=== PATIENT | male | born 2000 | race Caucasian/White ===

== ENCOUNTER 2021-11-09 19:07 | Emergency (ER) | payer MEDICAID, SELFPAY ==
[2021-11-09] VITALS (37 sets, daily range): BP systolic 111–165; BP diastolic 65–85; PULSE 75–120; RESP 12–23; TEMP 36.7–37; O2SAT 90–100
--- NOTE | 2021-11-09 19:22 | ED.GENADUL_ITS ---
Discharge Plan Disposition Patient Disposition: HOME Condition: Improving Discharge Details Clinical Impression: Allergic reaction to tree nut Primary Care Provider: Sofy Curran ED Provider: Walter Doyle Home Meds and New Rx's Prescriptions: New prednisone 50 mg tablet 50 mg PO DAILY Qty: 5 0RF Continued acetaminophen 500 mg Tablet 500 - 1,000 mg PO Q6H PRN0RF loratadine-pseudoephedrine [Claritin-D 24 Hour] 10-240 mg Tablet Extended Release 24 Hr 1 tab PO DAILY PRN0RF ibuprofen 200 mg Tablet 200 mg PO Q6H PRN0RF Glucagon Emergency Kit (human) 1 mg recon soln 1 mg IM PRN PRN0RF Flovent HFA 110 mcg/actuation HFA aerosol inhaler 2 puff INHALATION BID 0RF Label Comments: Inhale 2 puff using inhaler twice a day insulin lispro [Humalog KwikPen Insulin] 100 unit/mL insulin pen 50 unit SUBCUT TID 0RF Label Comments: INJECT 50 UNITS SUBCUTANEOUSLY DAILY IN THREE TO FOUR DIVIDED DOSES. MAX OF 50 UNITS/DAY epinephrine 0.3 mg/0.3 mL auto-injector 0.3 mg IM PRN PRN (Reason: anaphylaxis) Qty: 1 1RF Discharge Instructions Instructions: General Allergic Reaction (ED) Additional Instructions: Please closely monitor your symptoms and return immediately if you have any significant worsening of symptoms, difficulty breathing, swelling to your lips tongue throat or concerns for rebound reaction as discussed. You may continue to take [id number] Benadryl as needed for itching and stay well-hydrated. Please take the prednisone as prescribed and closely monitor your blood sugar and adjust your insulin dosing as needed. Referrals: Sofy Curran [Primary Care Provider] - (As needed for reassessment) Discharge Data Discharge Date/Time-TO BE ENTERED AT DEPARTURE: 11/09/21 21:56 Medical Decision Making Patient presenting to the emergency department for chief complaint of allergic reaction. He states approximately 1 hour prior to arrival he had eaten some almonds. Within 20 minutes he started having swelling of his face along with a rash all over his body. Patient denies any difficulty breathing, swelling to tongue or back of throat wheezing or other symptoms. He does state that he had a previous allergic reaction approximately 6 or 7 months ago that happened in his sleep with suspicion of a food source but unknown cause. He had been given an EpiPen at that point and today was the first reaction since. He did give himself the EpiPen prior to arrival. Physical exam shows swelling to the periorbital and lips but oral examination is unremarkable, normal lung sounds, no wheezing, slightly tachycardic otherwise stable patient with diffuse urticaria and rash. Given that patient is otherwise stable and has already received epinephrine plan to give patient fluids, steroids, H1 and H2 medication. Patient reassessed after over 2 hours of observation and patient now has no further swelling to face including lips, no wheezing, not tachycardic, urticaria still present on upper extremities but otherwise has improved. I do feel that patient is stable to go home with replacement for his EpiPen and prescription for additional EpiPen and refill as needed. Patient will be placed upon daily steroids for the next 5 days and close monitoring of symptoms along with return and follow-up precautions were discussed along with biphasic reaction. HPI General Mode of arrival: ambulatory . Date/Time Provider Initiated Documentation: 11/09/21 19:09 . Limitations to Documentation: no limitations . Information obtained by: patient and RN notes reviewed . History of Present Illness 21 year old M presents to the emergency department with the chief complaint of Allergic/ anaphylactic reaction, Quality is described as other (denies pain), Patient started experiencing this hour(s) (1) and it has been constant. improves with No relieving factors improve symptom(s), Other factors that worsen symptoms (Eating almonds) . Patient notes no other symptoms.. Patient did receive the following treatments prior to arrival, other (Took EpiPen 30 minutes prior to arrival) Related Data Home Medications Medication Instructions Recorded Confirmed acetaminophen 500 mg tablet 500 - 1,000 mg PO Q6H PRN 11/09/21 11/09/21 epinephrine 0.3 mg/0.3 mL 0.3 mg (0.3 mL) IM PRN PRN #1 ea 11/09/21 injection, auto-injector fluticasone propionate 110 2 puff INHALATION BID 11/09/21 11/09/21 mcg/actuation HFA aerosol inhaler (Flovent HFA) glucagon 1 mg solution for 1 mg IM PRN PRN 11/09/21 11/09/21 injection (Glucagon Emergency Kit) ibuprofen 200 mg tablet 200 mg PO Q6H PRN 11/09/21 11/09/21 insulin lispro 100 unit/mL 50 unit SUBCUT TID 11/09/21 11/09/21 subcutaneous pen (Humalog KwikPen (U-100) Insulin) loratadine-pseudoephedrine ER 10 1 tab PO DAILY PRN 11/09/21 11/09/21 mg-240 mg tablet,extended [id number] (Claritin-D 24 Hour) prednisone 50 mg tablet 50 mg PO DAILY #5 tab 11/09/21 Previous Rx's Medication Instructions Recorded epinephrine 0.3 mg/0.3 mL 0.3 mg (0.3 mL) IM PRN PRN #1 ea 11/09/21 injection, auto-injector prednisone 50 mg tablet 50 mg PO DAILY #5 tab 11/09/21 Allergies Allergy/AdvReac Type Severity Reaction Status Date / Time red dye Allergy Mild Skin Rash Unverified 11/09/21 19:23 Penicillins Allergy Unknown Other (See Unverified 11/09/21 19:23 Comment) General Stated Complaint: Allergic VICENTE: 2 Review of Systems Constitutional Constitutional: Denies chills, Denies fever(s) and Denies headache(s) Eyes Eyes: Reports itchy eyes ENT Ears, Nose, Mouth, and Throat: Denies facial pain, Denies headache(s), Reports lip swelling, Reports nasal congestion, Reports nasal discharge, Denies neck pain, Denies throat swelling and Denies tongue swelling Cardiovascular Cardiovascular: Denies chest pain, Denies syncope and Denies dyspnea Respiratory Respiratory: Denies chest congestion, Denies cough, Denies dyspnea and Denies wheezing Gastrointestinal Gastrointestinal: Denies abdominal pain, Denies nausea and Denies vomiting Musculoskeletal Musculoskeletal: Denies back pain and Denies neck pain Integumentary/Breasts Skin/Breast: Reports rash and Reports skin swelling Neurologic Neurologic: Denies syncope and Denies headache(s) Allergic/Immunologic Allergic/Immunologic: Reports as per HPI, Reports urticaria, Reports itchy eyes, Reports lip swelling, Denies throat swelling, Denies tongue swelling and Denies wheezing PFSH All Active Problems (Updated 11/09/21 @ 21:29 by Walter Doyle NP) Allergic reaction to tree nut (Acute) Social History Smoking/Tobacco Use Status: Never Smoking risk assessment performed?: Yes Alcohol Intake: current Alcohol Intake frequency: holidays/special occasions only Drug use: Occasionally Substance use type: marijuana Details: Marijuana weekly. Do you feel safe at home: Yes Do you feel safe in your relationship?: Yes Exam HENMT Ears: hearing grossly normal bilaterally, external ears normal and TM's normal bilaterally General nose exam: external nose normal and nares normal Face and sinus: edema bilaterally periorbital, upper lip and lower lip and no tenderness Mouth: oral mucosae normal, lip normal and tongue normal Throat: posterior oropharynx normal and uvula midline Eyes Alignment and Position: alignment normal Eyelids: eyelids normal Conjunctivae: conjunctivae normal Neck Neck: normal visual inspection, trachea midline and supple Resp Effort & Inspection: normal respiratory effort, able to speak in complete sentences and no audible wheezes Auscultation: clear to auscultation bilaterally Cardio Rate: tachycardic Rhythm: regular rhythm Heart Sounds: S1 normal and S2 normal Skin Rashes: rashes noted (bilateral arms) urticaria Trauma: no lacerations or abrasions Neuro General: patient alert, patient awake, patient oriented x3, gait normal, tone normal, moves all extremities, no focal motor deficits and not confused Course Vital Signs Vital signs: Vital Signs Temperature 37.0 C 11/09/21 19:14 Pulse 120 H 11/09/21 19:14 Respiratory Rate 20 11/09/21 19:14 Blood Pressure 165/74 H 11/09/21 19:14 Pulse Oximetry 100 11/09/21 19:14 Temperature 37.0 C 11/09/21 19:14 Temperature Source Temporal Artery Scan 11/09/21 19:14 Pulse 120 H 11/09/21 19:14 Respiratory Rate 20 11/09/21 19:14 Respiratory Effort Non-Labored 11/09/21 19:16 Respiratory Pattern Normal 11/09/21 19:16 Blood Pressure 165/74 H 11/09/21 19:14 Blood Pressure Position Sitting 11/09/21 19:14 Pulse Oximetry 100 11/09/21 19:14 Oxygen Delivery Method Room Air 11/09/21 19:14 Oxygen Flow Rate 0 11/09/21 19:14 PAWSS Have you Been Recently Intoxicated or Drunk Within the Last 30 days?: No Have you Ever Experienced Previous Episodes of Alcohol Withdrawal?: No Have you ever Experienced Withdrawal Seizures?: No Have you ever Experienced Delirium Tremens(DT)s?: No Have you ever undergone Alcohol Rehabilitation Treatment (i.e, inpt ot outpatient treatment programs)?: No Have you ever Experienced Blackouts?: No Have you ever Combined Alcohol with other Downers within the last 90 days?: No Have you ever Combined Alcohol with any other Substance of Abuse during the last 90 days?: No Positive Blood Alcohol level on Presentation? [PCS.BAL]: No Evidence of Increased Autonomic Activity (i.e. HR>120, tremor, sweating, agitation, nausea)?: No Result: 0
[2021-11-09] MEDS: Normal Saline 1,000 ML 1000 ML IV (19:31)
[2021-11-09] MEDS: diphenhydrAMINE 50 MG/ML VIAL IVP (19:39)
[2021-11-09] MEDS: Famotidine 20 MG/2 ML VIAL 40 MG IVP (19:39)
[2021-11-09] MEDS: Normal Saline Flush 10 ML SYR IVP (19:39)
[2021-11-09] MEDS: methylPREDNISolone SUCC 125 MG VIAL IVP (19:39)
[2021-11-09] MEDS: EPINEPHrine 0.3 MG KIT IM (22:00)
== END 2021-11-09 21:56 | disposition home or self-care (01) ==
PROVIDERS: Emergency Provider Nurse Practitioner Family; PCP Family Medicine
DX: T78.1XXA Other adverse food reactions, not elsewhere classified, initial encounter (principal); R21 Rash and other nonspecific skin eruption
CPT/HCPCS: 96361; 96374; 96375; 99283; J0171; J1200; J2930